=== PATIENT | male | born 1990 | race Caucasian/White ===

== ENCOUNTER 2021-06-07 01:23 | Emergency (ER) | payer OTHER, MEDICAID ==
[~2021-06-07] VITALS: Ht 167.6 cm; Wt 79.4 kg
[2021-06-07 01:50] VITALS: BP_SYST 154
[2021-06-07] MEDS ORDERED: ACETAMINOPHEN 500 MG TABLET PO ONE (02:30)
[2021-06-07] MEDS ORDERED: IBUP-1969 PO (02:47)
[2021-06-07] MEDS ORDERED: ACET-2634 PO (02:47)
[2021-06-07 03:42] VITALS: BP_SYST 142
== END 2021-06-07 03:42 | disposition home or self-care (01) ==
LOC: SED 01:23
DX: M25.512 Pain in left shoulder (principal); V28.4XXA Motorcycle driver injured in noncollision transport accident in traffic accident, initial encounter; Y93.89 Activity, other specified; Y92.89 Other specified places as the place of occurrence of the external cause; Y99.8 Other external cause status
CPT/HCPCS: 73030; 99283

== ENCOUNTER 2022-04-15 17:49 | Emergency (ER) | payer MEDICAID ==
[~2022-04-15] VITALS: Ht 170.2 cm; Wt 79.4 kg
[~2022-04-15 17:49] MED LIST: ACET-2634 PO; IBUP-1969 PO
[2022-04-15 17:50] VITALS: BP_SYST 147
--- NOTE | 2022-04-15 17:55 | NUR ---
Pt coming from work ambulatory with steady gait. Pt is A&Ox4. Pt c/o cutting right pinky finger at work with sheet metal. Laceration is visibnly seen and bleeding has been controlled. Rates pain 5/10. NKA. No known medical conditions. VSS. Bed in lowest position.
--- NOTE | 2022-04-15 17:56 | NUR ---
ER at bedside examining patient.
[2022-04-15] MEDS ORDERED: LIDOCAINE 1% 10 MG/ML, 20 ML MDV SUBCUT ONE (18:00)
--- NOTE | 2022-04-15 18:02 | NUR ---
Suture setup at bedside. Wound cleaned by auto technician mechanic.
[2022-04-15 18:21] VITALS: BP_SYST 128
--- NOTE | 2022-04-15 18:21 | NUR ---
Patient given written and verbal discharge instructions and verbalizes understanding. ER MD discussed with patient the results and treatment provided. Patient in stable condition. ID arm band removed. Patient educated on pain management and to follow up with PMD. Pain Scale 0/10. Opportunity for questions provided and answered. Medication side effect fact sheet provided.
[2022-04-15] MEDS ORDERED: BACITRACIN 1 GM OINT TP ONE (18:24)
[2022-04-15] MEDS ORDERED: BACITRACIN ZINC 15 GM TOPICAL OINTMENT TP ONE (18:30)
== END 2022-04-15 18:21 | disposition home or self-care (01) ==
LOC: SED 17:49
DX: S61.210A Laceration without foreign body of right index finger without damage to nail, initial encounter (principal); W31.1XXA Contact with metalworking machines, initial encounter; Y93.89 Activity, other specified; Y92.89 Other specified places as the place of occurrence of the external cause; Y99.8 Other external cause status
CPT/HCPCS: 12001; 99282; J2001